=== PATIENT | male | born 1930 | race Caucasian/White ===

== ENCOUNTER 2018-03-18 11:59 | Inpatient (IN) | payer MEDICARE, BC ==
[2018-03-18] MEDS ORDERED: SODIUM CHLORIDE 0.9% 1,000 ML BAG ONE (13:50)
[2018-03-18] MEDS ORDERED: PANTOPRAZOLE 40 MG/10 ML VIAL ONE (13:50)
[2018-03-18] MEDS ORDERED: SODIUM CHLORIDE 0.9% 1,000 ML IV SCH (21:30)
[2018-03-18 21:43] VITALS: BMI 22.3
[2018-03-18 23:27] LABS: Basophils % (A) 0 %; Eosinophils # (A) 0.1 k/uL (0-0.7); Eosinophils % (A) 3 %; HCT 29.1 % (39.0-53.0); HGB 9.3 gm/dL (13.0-17.5); Hypochromasia Slight; Lymphocytes # (A) 0.6 k/uL (1.0-4.8); Lymphocytes % (A) 16 %; MCH 30.3 pg (25.0-35.0); MCHC 31.9 g/dL (31.0-37.0); MCV 94.9 fL (80.0-100.0); Mean Platelet Volume 7.4; Monocytes # (A) 0.3 k/uL (0-1.0); Monocytes % (A) 9 %; Neutrophils # (A) 2.6 k/uL (1.3-7.7); Neutrophils % (A) 69 %; Platelet Count 117 k/uL (150-450); RBC 3.07 m/uL (4.30-5.90); RDW 15.4 % (11.5-15.5); WBC 3.7 k/uL (3.8-10.6)
[2018-03-18 23:33] LABS: INR 3.3 (<1.2); Prothrombin Time 31.4 sec (9.0-12.0)
[2018-03-18 23:51] LABS: Albumin 3.2 g/dL (3.5-5.0); Calcium 8.5 mg/dL (8.4-10.2); Potassium 4.6 mmol/L (3.5-5.1); Total Bilirubin 1.4 mg/dL (0.2-1.3); Total Protein 5.6 g/dL (6.3-8.2)
[2018-03-19 02:10] LABS: INR 3.2 (<1.2); Partial Thromboplastin Time 40.2 sec (22.0-30.0); Prothrombin Time 30.9 sec (9.0-12.0)
[2018-03-19 05:26] LABS: Glucose,Whole Blood 343 mg/dL (75-99)
[2018-03-19] MEDS ORDERED: NITROGLYCERIN SL TABS 0.4 MG TAB SUBLINGUAL PRN (05:35)
[2018-03-19 05:56] LABS: Basophils % (A) 1 %; Eosinophils # (A) 0.1 k/uL (0-0.7); Eosinophils % (A) 2 %; HGB 10.4 gm/dL (13.0-17.5); Lymphocytes # (A) 0.6 k/uL (1.0-4.8); Lymphocytes % (A) 15 %; MCHC 31.7 g/dL (31.0-37.0); MCV 94.7 fL (80.0-100.0); Monocytes # (A) 0.4 k/uL (0-1.0); Monocytes % (A) 9 %; Neutrophils # (A) 2.8 k/uL (1.3-7.7); Neutrophils % (A) 71 %; Platelet Count 155 k/uL (150-450); RBC 3.48 m/uL (4.30-5.90); RDW 15.4 % (11.5-15.5)
[2018-03-19] MEDS: INSULIN ASPART 100 UNIT/ML 1 ML 10 ML VIAL SQ SCH ×4 (06:17→20:46)
[2018-03-19 07:15] LABS: Basophils % (A) 0 %; Eosinophils % (A) 0 %; HGB 9.7 gm/dL (13.0-17.5); Hypochromasia Marked; Lymphocytes # (A) 0.4 k/uL (1.0-4.8); Lymphocytes % (A) 6 %; MCH 29.7 pg (25.0-35.0); MCHC 30.4 g/dL (31.0-37.0); MCV 97.6 fL (80.0-100.0); Mean Platelet Volume 7.2; Monocytes # (A) 0.4 k/uL (0-1.0); Monocytes % (A) 6 %; Neutrophils # (A) 6.1 k/uL (1.3-7.7); Neutrophils % (A) 86 %; Platelet Count 162 k/uL (150-450); RBC 3.28 m/uL (4.30-5.90); RDW 15.4 % (11.5-15.5); WBC 7.1 k/uL (3.8-10.6)
[2018-03-19 07:16] LABS: Calcium 8.9 mg/dL (8.4-10.2); Potassium 5.2 mmol/L (3.5-5.1)
[2018-03-19 07:21] LABS: INR 3.1 (<1.2); Prothrombin Time 30.1 sec (9.0-12.0)
[2018-03-19] MEDS ORDERED: DEXTROSE 5%-0.9% NACL 1,000 ML IV SCH (09:00)
[2018-03-19] MEDS ORDERED: PHYTONADIONE ORAL 5 MG/5 ML ORAL.SYRG PO STA (09:22)
[2018-03-19] MEDS ORDERED: INSULIN DETEMIR 100 UNIT/ML 10 ML VIAL SQ STA (09:22)
[2018-03-19] MEDS: SODIUM BICARB IV SCH ×4 (10:09→20:28)
[2018-03-19] MEDS: NACL IV SCH ×4 (10:09→20:28)
[2018-03-19] MEDS: DEXTROSE IV SCH ×4 (10:09→20:28)
[2018-03-19] MEDS: PANTOPRAZOLE 40 MG/10 ML VIAL IVP SCH (10:14)
[2018-03-19] MEDS: FERROUS SULFATE 325 MG TAB PO SCH (10:14)
[2018-03-19] MEDS: FUROSEMIDE 20 MG TAB PO SCH (10:23)
[2018-03-19] MEDS: DIGOXIN 250 MCG TAB PO SCH (10:23)
[2018-03-19 11:00] LABS: Glucose,Whole Blood 367 mg/dL (75-99)
--- NOTE | 2018-03-19 12:30 | P.CRDCN ---
History of Present Illness Consult date: 03/19/18 Chief complaint: Blood in the stool History of present illness: This is a pleasant 87-year-old gentleman with a past medical history significant for chronic atrial fibrillation on oral anticoagulation with Coumadin as well as valvular heart disease and known aortic stenosis appears to be severe by physical examination was brought by his to the emergency room because she noticed blood in the stool. The patient doesn't follow with a global sales executive at [place] and he supposed to undergo transcutaneous aortic valve replacement. The noticed that the patient has been having blood in the stool and blood in the toilet for the last 24 hours. Because of that she brought into the emergency room. The hemoglobin when he presented was 10.4 and this morning was 9.7. I don't have any baseline hemoglobin on the patient from before. The INR 1 the patient presented to the hospital was for and the patient received vitamin K and the INR today is around 3. We get involved in the care of the patient because of mildly abnormal cardiac enzymes was mildly abnormal troponin. In term off symptoms, the patient denies having any chest pain or chest discomfort, but he does have shortness of breath with exertion appears to be chronic and likely related to the aortic stenosis. No dizziness or lightheadedness. And no syncope. The EKG showed chronic atrial fibrillation. The common and currently is on hold. The patient's stated that the patient did have gastrointestinal bleeding in the past and he underwent multiple upper endoscopy where he was diagnosed with ulcers but the last upper endoscopy revealed what it seems varicose veins in his esophagus. Past Medical History Past Medical History: Atrial Fibrillation, Diabetes Mellitus, Hyperlipidemia Additional Past Medical History / Comment(s): Venous insufficiency History of Any Multi-Drug Resistant Organisms: None Reported Additional Past Surgical History / Comment(s): hemorrhoidectomy, adenoidectomy Past Anesthesia/Blood Transfusion Reactions: No Reported Reaction Smoking Status: Former smoker - Past Family History Father Family Medical History: Cancer Additional Family Medical History / Comment(s): lung cancer Mother Family Medical History: Cancer, CVA/TIA Additional Family Medical History / Comment(s): pancreatic cancer Medications and Allergies Home Medications Medication Instructions Recorded Confirmed Type Aspirin [[facility] Aspirin EC] 81 mg PO DAILY 03/18/18 03/18/18 History Digoxin [Lanoxin] 250 mcg PO DAILY 03/18/18 03/18/18 History Ferrous Sulfate [Feosol] 325 mg PO DAILY 03/18/18 03/18/18 History Insulin NPH Hum/Reg Insulin Hm 15 unit SQ BID 03/18/18 03/18/18 History [NovoLIN 70-30 100 UNIT/ML VIAL] Latanoprost/Pf [Latanoprost 0.005% 1 drop LEFT EYE HS 03/18/18 03/18/18 History Eye Drop] Magnesium Oxide [Mag-Ox] 250 mg PO DAILY 03/18/18 03/18/18 History Pantoprazole Sodium 20 mg PO DAILY 03/18/18 03/18/18 History Simvastatin [Zocor] 20 mg PO HS 03/18/18 03/18/18 History Warfarin [Coumadin] 2.5 mg PO [id number] 03/18/18 03/18/18 History Warfarin [Coumadin] 5 mg PO MO 03/18/18 03/18/18 History Allergies Allergy/AdvReac Type Severity Reaction Status Date / Time No Known Allergies Allergy Verified 03/18/18 22:08 Physical Exam Vitals: Vital Signs Temp Pulse Resp BP Pulse Ox 03/19/18 07:30 97.4 F L 88 18 120/65 98 03/19/18 03:36 95 18 03/19/18 03:34 97.8 F 95 18 133/60 96 03/19/18 00:14 97.5 F L 80 17 125/65 95 03/19/18 00:00 80 17 03/18/18 21:30 97.8 F 82 17 133/61 99 03/18/18 20:00 80 17 130/66 97 Intake and Output 03/18/18 03/19/18 03/19/18 22:59 06:59 14:59 Intake Total 900 Output Total 200 Balance 700 Intake: Intake, IV Titration 900 Amount Sodium Chloride 0.9% 1, 900 000 ml @ 75 mls/hr IV . [id number] [facility] Rx#:[id number] Output: Urine 200 Other: Voiding Method Toilet Toilet # Voids 1 600 # Bowel Movements 2 Weight 72.5 kg 67.3 kg - Constitutional General appearance: no acute distress - Respiratory Respiratory: bilateral: CTA - Cardiovascular Rhythm: irregularly irregular Heart sounds: normal: S1 Abnormal Heart Sounds: systolic murmur Results 03/19/18 06:26 03/19/18 06:26 Cardiac Enzymes 03/18/18 03/18/18 03/19/18 Range/Units 23:15 23:15 06:26 AST 27 (17-59) U/L Troponin I 0.833 H* 0.646 H* (0.000-0.034) ng/mL Coagulation 03/18/18 03/18/18 03/19/18 Range/Units 12:40 23:15 06:26 PT 30.9 H 31.4 H 30.1 H (9.0-12.0) sec APTT 40.2 H (22.0-30.0) sec CBC 03/18/18 03/18/18 03/19/18 Range/Units 12:40 23:15 06:26 WBC 4.0 3.7 L 7.1 (3.8-10.6) k/uL RBC 3.48 L 3.07 L 3.28 L (4.30-5.90) m/uL Hgb 10.4 L 9.3 L 9.7 L (13.0-17.5) gm/dL Hct 33.0 L 29.1 L 32.0 L (39.0-53.0) % Plt Count 155 117 L 162 (150-450) k/uL Comprehensive Metabolic Panel 03/18/18 03/19/18 Range/Units 23:15 06:26 Sodium 138 141 (137-145) mmol/L Potassium 4.6 5.2 H (3.5-5.1) mmol/L Chloride 111 H 111 H (98-107) mmol/L Carbon Dioxide 18 L 11 L (22-30) mmol/L BUN 30 H 33 H (9-20) mg/dL Creatinine 0.92 1.04 (0.66-1.25) mg/dL Glucose 245 H 351 H (74-99) mg/dL Calcium 8.5 8.9 (8.4-10.2) mg/dL AST 27 (17-59) U/L ALT 26 (21-72) U/L Alkaline Phosphatase 100 (38-126) U/L Total Protein 5.6 L (6.3-8.2) g/dL Albumin 3.2 L (3.5-5.0) g/dL Current Medications Generic Name Dose Route Start Last Admin Trade Name Freq PRN Reason Stop Dose Admin Atorvastatin Calcium 10 mg 03/19/18 21:00 Lipitor PO HS [facility] Digoxin 250 mcg 03/19/18 09:30 03/19/18 10:23 Lanoxin PO 250 mcg DAILY [facility] Administration Ferrous Sulfate 325 mg 03/19/18 09:30 03/19/18 10:14 Feosol PO Not Given DAILY [facility] Furosemide 20 mg 03/19/18 09:30 03/19/18 10:23 Lasix PO 20 mg DAILY [facility] Administration Sodium Bicarbonate 100 ml/ 1,100 mls @ 100 mls/hr 03/19/18 10:00 03/19/18 10: 09 Dextrose/Sodium Chloride IV 100 mls/hr .Q11H [facility] Administration Insulin Aspart 0 unit 03/19/18 07:30 03/19/18 12:03 Novolog SQ 7 unit ACHS [facility] Administration Protocol Insulin Aspart 15 unit 03/19/18 17:30 Novolog Mix 70-30 Vial SQ AC-BID [facility] Latanoprost 1 drops 03/19/18 21:00 Xalatan 0.005% LEFT EYE HS [facility] Magnesium Oxide 400 mg 03/20/18 09:00 Mag-Ox PO DAILY [facility] Nitroglycerin 0.4 mg 03/19/18 05:35 03/19/18 05:37 Nitrostat SUBLINGUAL 0.4 mg ONCE PRN Administration Chest Pain Pantoprazole Sodium 40 mg 03/19/18 09:00 03/19/18 10:14 Protonix IVP 40 mg DAILY [facility] Administration Intake and Output 03/18/18 03/19/18 03/19/18 22:59 06:59 14:59 Intake Total 900 Output Total 200 Balance 700 Intake: Intake, IV Titration 900 Amount Sodium Chloride 0.9% 1, 900 000 ml @ 75 mls/hr IV . [id number] [facility] Rx#:[id number] Output: Urine 200 Other: Voiding Method Toilet Toilet # Voids 1 600 # Bowel Movements 2 Weight 72.5 kg 67.3 kg 03/19/18 06:26 03/19/18 06:26 Assessment and Plan Assessment: Assessment #1 GI bleed likely to be lower GI bleed #2 anemia secondary to the above #3 chronic atrial fibrillation was controlled heart rate #4 aortic stenosis, likely to be severe by examination Plan #1 the Coumadin is on hold. #2 the patient was given vitamin K and INR is coming down #3 I think the Coumadin need to be stopped permanently #4 the atrial fibrillation seems to be under good control under the current dose of digoxin #5 I am not concerned about the mildly abnormal cardiac enzymes #6 I will obtain an echocardiogram was Doppler Thank you for allowing us participate in his care and we will continue following up with the patient
[2018-03-19 12:37] LABS: Calcium 9.2 mg/dL (8.4-10.2); Potassium 5.1 mmol/L (3.5-5.1); Total Bilirubin 1.2 mg/dL (0.2-1.3); Total Protein 6.7 g/dL (6.3-8.2)
[2018-03-19 12:45] LABS: Creatine Kinase MB 5.2 ng/mL (0.0-2.4)
[2018-03-19 12:47] LABS: Troponin I 0.991 ng/mL (0.000-0.034)
[2018-03-19 16:02] LABS: Basophils % (A) 0 %; Eosinophils % (A) 0 %; HCT 31.7 % (39.0-53.0); Hypochromasia Slight; Lymphocytes # (A) 0.4 k/uL (1.0-4.8); Lymphocytes % (A) 6 %; MCH 30.5 pg (25.0-35.0); MCHC 31.5 g/dL (31.0-37.0); MCV 96.7 fL (80.0-100.0); Mean Platelet Volume 7.4; Monocytes # (A) 0.8 k/uL (0-1.0); Monocytes % (A) 11 %; Neutrophils # (A) 5.7 k/uL (1.3-7.7); Neutrophils % (A) 80 %; Platelet Count 151 k/uL (150-450); RBC 3.27 m/uL (4.30-5.90); RDW 15.4 % (11.5-15.5); WBC 7.1 k/uL (3.8-10.6)
[2018-03-19 16:30] LABS: Glucose,Whole Blood 242 mg/dL (75-99)
[2018-03-19 16:41] LABS: Potassium 4.1 mmol/L (3.5-5.1)
[2018-03-19] MEDS: INSULN ASP PRT/INSULIN ASPART 100 UNIT/ML 10 ML VIAL SQ SCH (17:26)
--- NOTE | 2018-03-19 20:01 | HP ---
HISTORY AND PHYSICAL DATE OF ADMISSION: 03/18/2018 HISTORY OF PRESENT ILLNESS: This is an 87-year-old white male who is a patient of Dr. Santana and the patient was brought to the emergency room because his noticed blood in the toilet after his bowel movement and he was brought to the emergency room because this was going on for the whole day and the patient was suspected to have lower GI bleeding. He has a history of GI bleeding in the past and he has had upper and lower endoscopies in the past. In the ER, CBC showed a WBC count of 7.1, hemoglobin 10.4, and platelet count 162,000. The patient has a history of chronic atrial fibrillation and he has been on Coumadin. Protime was 30.1 and INR 3.1. Patient was seen by me in the ER and actually he was waiting for being assigned to a room. The patient's blood chemistry showed sodium 141, potassium 5.2, BUN 33, and creatinine 1.04. Blood sugar was 351. The patient was admitted to the hospital. PAST MEDICAL HISTORY: Past medical history reveals that he has multiple chronic illnesses. He is known to have chronic atrial fibrillation and he has been on Coumadin and also he has diabetes mellitus, chronic congestive heart failure and has had GI bleeding in the past. He has chronic iron deficiency anemia and hyperlipidemia. CURRENT MEDICATIONS: Include Lipitor 10 mg daily, 250 mcg daily, ferrous sulfate 325 mg p.o. daily, Lasix 20 mg daily. He is also on NovoLog 70/30 insulin. He is using Xalatan eyedrops daily q.h.s. and Nitrostat p.r.n., Protonix 40 mg daily. ALLERGIES: He has no known drug allergies. SOCIAL HISTORY: He does not smoke and he does not drink alcohol. The patient is currently living in [place] in the winter time he comes to [place]. His primary care physician is Dr. Santana and the patient saw Dr. Santana 2-3 days ago. Apparently, he has severe aortic stenosis and he is planning on going for a transcutaneous valve redo replacement surgery soon. FAMILY HISTORY: Noncontributory. REVIEW OF SYSTEMS: Patient denies any headache. Appetite has been good. Bowels regular, but he has blood in the stool. He denies any chest pain. He has a exertional shortness of breath. He has no abdominal pain. He has no polyuria or dysuria. He has no neurological symptoms. PHYSICAL EXAMINATION: Reveals an 87-year-old white male, he appears weak but he is alert and oriented. There is no jaundice. There is no generalized lymphadenopathy. No petechia or bruises. He is afebrile. Pulse is 78 per minute, irregular. Lungs reveal diminished breath sounds over both bases with a few scattered rales and rhonchi. Abdomen is soft and nontender. There is no mass palpable. Examination of the lower extremities reveal no pitting edema. Neurologic examination does not reveal any localizing signs. IMPRESSION: 1. Acute gastrointestinal bleeding. 2. Acute on chronic blood-loss anemia. 3. History of chronic iron deficiency anemia. 4. Chronic atrial fibrillation. 5. Severe aortic stenosis. 6. Chronic congestive heart failure. 7. Gastroesophageal reflux disease. 8. Diabetes mellitus. PLAN: Patient will be admitted to the hospital. We will monitor his hemoglobin and hematocrit. We will get cardiology and gastroenterology consultation. We will start him on IV fluids for adequate hydration. Prognosis is guarded. The diagnosis, prognosis and therapeutic plans were discussed in detail with the patient and his and his son. MMODL / IJN: [id number] /
[2018-03-19] MEDS: ATORVASTATIN 10 MG TAB PO SCH (20:27)
[2018-03-19] MEDS: LATANOPROST 0.005% OPHTH DROPS 2.5 ML BTL LEFT EYE SCH (20:28)
[2018-03-19 20:42] LABS: Glucose,Whole Blood 128 mg/dL (75-99)
[2018-03-19] MEDS ORDERED: SODIUM CHLORIDE 0.9% 1,000 ML IV ONE (22:30)
[2018-03-19 23:51] LABS: Appearance,Urine Clear (Clear); Bilirubin,Urine Negative (Negative); Blood,Urine Negative (Negative); Color,Urine Yellow; Glucose,Urine (UA) Negative (Negative); Ketones,Urine Negative (Negative); Leukocyte Esterase,Urine Negative (Negative); Nitrite,Urine Negative (Negative); Protein,Urine Negative (Negative); Specific Gravity,Urine 1.011 (1.001-1.035); Urobilinogen,Urine <2.0 mg/dL (<2.0)
--- NOTE | 2018-03-20 00:31 | PN ---
PROGRESS NOTE ATTENDING PHYSICIAN: Dr. Turner Santana. DATE OF ADMISSION: 03/18/2018. DATE OF SERVICE: 03/19/2018. CHIEF COMPLAINT: GI bleeding. HISTORY OF PRESENT ILLNESS: This gentleman presented to the emergency room because he had some blood on his bed. Subsequently that night he started having black-colored stool. The patient has a known history of esophageal varices, which has bled intermittently. He has had a previous sclerosing of it about 2 years ago. He does have a history of chronic atrial fibrillation and is on anticoagulation with Coumadin. The patient's Coumadin level was therapeutic. His hemoglobin has remained stable between at around 9.5 range on average. The patient's hemoglobin prior to hospitalization has been about 11.9. The patient denies any other symptoms. He does have some epigastric discomfort but denies any chest pain. Earlier in the night he did have some chest pain for which he was given nitroglycerin without much change. He does have a history of severe aortic stenosis and chronic atrial fibrillation. No symptoms or signs of CHF. 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 REVIEW OF SYSTEMS: NEURO: Denies any headaches or dizziness. is at the bedside, said he had some confusion earlier. At this time is pretty alert complaining of hunger. He has a history of diabetes mellitus with elevated blood sugars. PSYCH: No anxiety or depression. PSYCH: No chest pain, angina, palpitations. RESPIRATORY: Denies shortness of breath, cough, hemoptysis. GI: No nausea, vomiting, abdominal pain, diarrhea. Presently complains of melanotic stools. : No symptoms of dysuria or hematuria. EXTREMITIES: No pain. CONSTITUTIONAL: No fevers or chills. PHYSICAL EXAMINATION: Pleasant gentleman present in no distress, awake, alert. VITAL SIGNS: Temperature 97.4, pulse 88, respirations 18, blood pressure 120/65, pulse ox 98% on room air. HEENT: Normocephalic. NECK: No JVD. CHEST: Clear to auscultation and percussion. CARDIAC: Normal S1, S2 with no gallops. Irregularly, irregular rhythm. Systolic murmur 2/6 left sternal border. ABDOMEN: Soft. No palpable masses. Bowel sounds normal. No organomegaly. No abdominal bruits. EXTREMITIES: Trace chronic edema. The patient does have evidence of chronic venous stasis with chronic skin changes. NEUROLOGIC: Awake, alert, oriented x3 with well-coordinated movements. LABORATORY ASSESSMENT: The CBC which revealed hemoglobin 9.7, stable INR at 3.1, potassium 5.2, chloride 111, CO2 content 11, anion gap of 19. Lactic acid is 2.2, BUN 33, creatinine 1.04, glucose 351. Troponin stable between 0.09, 0.64. ASSESSMENT: 1. Anemia secondary to acute blood loss. 2. Upper bleeding. 3. Known history of esophageal varices. 4. Chronic atrial fibrillation. 5. Anticoagulated status. 6. Troponin elevation secondary to mismatch. 7. Suggestion of mild acidosis, etiology unclear. PLAN: Hydration, transfusion if needed. Vitamin K now. Repeat INR in the morning. GI to see the patient. The patient is probably going to require an EGD. The patient's prognosis remains guarded. We will have to be off Coumadin and aspirin for now. Condition of the patient discussed with the patient and spouse.. MMGABRIELAL / IJN: [id number] /
--- NOTE | 2018-03-20 02:09 | P.CONS ---
History of Present Illness - Reason for Consult Consult date: 03/19/18 GI bleeding. - History of Present Illness The patient is an 87-year-old male with history of atrial fibrillation and aortic stenosis on Coumadin therapy and aspirin, presented to the emergency room with history of GI bleeding. Apparently, his noticed some blood in his stools and that was followed by dark bowel movement. There is a history of esophageal varices and he had band ligation around 2 years ago. The patient has maintained his hemoglobin around 11 and was found to have a hemoglobin around 9.5 on admission which has since been stable. There is no history of hematemesis and he denied any abdominal pains or dysphagia. His INR was therapeutic but his Coumadin and aspirin has been with her since admission. He had mild elevation in his cardiac enzymes for which she was seen by cardiology. He had lactic acidosis as well. Review of Systems Constitutional: Denies fever, chills, sweats, weight gain, or loss. HEENT: Negative for migraines, blurred vision or loss, earaches, drainage, tinnitus, oral mucosal lesions, dysphagia, or odynophagia. CARDIAC: Negative for chest pain, arrhythmias, or palpitation. RESPIRATORY: Negative for shortness of breath, hemoptysis, cough, or sputum production. GI: See HPI for pertinent findings. : Negative for hematuria, urgency, frequency, polyuria, or dysuria. MUSCULOSKELETAL: Negative for muscle aches, swelling, arthritis, and arthralgias. NEUROLOGIC: Negative for stroke or TIA. ENDOCRINE: Negative for thyroid problems. SKIN: Negative for rash or itching. PSYCHIATRIC: Negative history for depression and anxiety Past Medical History Past Medical History: Atrial Fibrillation, Diabetes Mellitus, Hyperlipidemia Additional Past Medical History / Comment(s): Venous insufficiency History of Any Multi-Drug Resistant Organisms: None Reported Additional Past Surgical History / Comment(s): hemorrhoidectomy, adenoidectomy Past Anesthesia/Blood Transfusion Reactions: No Reported Reaction Smoking Status: Former smoker - Past Family History Father Family Medical History: Cancer Additional Family Medical History / Comment(s): lung cancer Mother Family Medical History: Cancer, CVA/TIA Additional Family Medical History / Comment(s): pancreatic cancer Medications and Allergies Home Medications Medication Instructions Recorded Confirmed Type Aspirin [Hawley Aspirin EC] 81 mg PO DAILY 03/18/18 03/18/18 History Digoxin [Lanoxin] 250 mcg PO DAILY 03/18/18 03/18/18 History Ferrous Sulfate [Feosol] 325 mg PO DAILY 03/18/18 03/18/18 History Insulin NPH Hum/Reg Insulin Hm 15 unit SQ BID 03/18/18 03/18/18 History [NovoLIN 70-30 100 UNIT/ML VIAL] Latanoprost/Pf [Latanoprost 0.005% 1 drop LEFT EYE HS 03/18/18 03/18/18 History Eye Drop] Magnesium Oxide [Mag-Ox] 250 mg PO DAILY 03/18/18 03/18/18 History Pantoprazole Sodium 20 mg PO DAILY 03/18/18 03/18/18 History Simvastatin [Zocor] 20 mg PO HS 03/18/18 03/18/18 History Warfarin [Coumadin] 2.5 mg PO [id number] 03/18/18 03/18/18 History Warfarin [Coumadin] 5 mg PO MO 03/18/18 03/18/18 History Allergies Allergy/AdvReac Type Severity Reaction Status Date / Time No Known Allergies Allergy Verified 03/18/18 22:08 Physical Exam Vitals: Vital Signs Temp Pulse Resp BP Pulse Ox 03/19/18 16:00 98.0 F 86 20 153/71 100 03/19/18 12:00 97.4 F L 83 20 142/60 100 03/19/18 07:30 97.4 F L 88 18 120/65 98 03/19/18 03:36 95 18 03/19/18 03:34 97.8 F 95 18 133/60 96 03/19/18 00:14 97.5 F L 80 17 125/65 95 03/19/18 00:00 80 17 03/18/18 21:30 97.8 F 82 17 133/61 99 03/18/18 20:00 80 17 130/66 97 Intake and Output 03/19/18 03/19/18 03/19/18 06:59 14:59 22:59 Intake Total 900 Output Total 200 450 Balance 700 -450 Intake: Intake, IV Titration 900 Amount Sodium Chloride 0.9% 1, 900 000 ml @ 75 mls/hr IV . [id number] [facility] Rx#:[id number] Output: Urine 200 450 Other: Voiding Method Toilet # Voids 600 3 # Bowel Movements 2 Weight 67.3 kg General appearance: The patient is stated age, pleasant in no apparent distress. HET: Head is normocephalic and atraumatic. Pupils are equal and reactive. Oropharynx is clear without lesions. Neck: Supple without lymphadenopathy. Trachea midline. Heart: S1 S2. Irregular rhythm. Lungs: No crackles or wheezes are heard. Abdomen: Soft, nontender, nondistended with bowel sounds. No peritoneal signs. No palpable organomegaly or masses. Extremities: Normal skin color and turgor. No cyanosis, rash, ulceration, clubbing, or edema. Radial and pedal pulses are 2/4 bilaterally. Neurological: Oriented X3. No focal deficits. Strength and sensation are grossly intact. Results CBC & Chem 7: 03/19/18 15:24 03/19/18 15:24 Labs: Abnormal Lab Results - Last 24 Hours (Table) 03/18/18 03/18/18 03/18/18 Range/Units 12:40 12:40 12:40 WBC (3.8-10.6) k/uL RBC 3.48 L (4.30-5.90) m/uL Hgb 10.4 L (13.0-17.5) gm/dL Hct 33.0 L (39.0-53.0) % MCHC (31.0-37.0) g/dL Plt Count (150-450) k/uL Lymphocytes # 0.6 L (1.0-4.8) k/uL PT 30.9 H (9.0-12.0) sec INR 3.2 H (<1.2) APTT 40.2 H (22.0-30.0) sec Potassium (3.5-5.1) mmol/L Chloride 109 H (98-107) mmol/L Carbon Dioxide (22-30) mmol/L BUN 34 H (9-20) mg/dL Glucose 160 H (74-99) mg/dL POC Glucose (mg/dL) (75-99) mg/dL Plasma Lactic Acid Mil (0.7-2.0) mmol/L Total Bilirubin (0.2-1.3) mg/dL CK-MB (CK-2) (0.0-2.4) ng/mL Troponin I (0.000-0.034) ng/mL Total Protein (6.3-8.2) g/dL Albumin (3.5-5.0) g/dL 03/18/18 03/18/18 03/18/18 Range/Units 12:40 23:15 23:15 WBC 3.7 L (3.8-10.6) k/uL RBC 3.07 L (4.30-5.90) m/uL Hgb 9.3 L (13.0-17.5) gm/dL Hct 29.1 L (39.0-53.0) % MCHC (31.0-37.0) g/dL Plt Count 117 L (150-450) k/uL Lymphocytes # 0.6 L (1.0-4.8) k/uL PT 31.4 H (9.0-12.0) sec INR 3.3 H (<1.2) APTT (22.0-30.0) sec Potassium (3.5-5.1) mmol/L Chloride (98-107) mmol/L Carbon Dioxide (22-30) mmol/L BUN (9-20) mg/dL Glucose (74-99) mg/dL POC Glucose (mg/dL) (75-99) mg/dL Plasma Lactic Acid Mil (0.7-2.0) mmol/L Total Bilirubin (0.2-1.3) mg/dL CK-MB (CK-2) 5.2 H (0.0-2.4) ng/mL Troponin I 0.991 H* (0.000-0.034) ng/mL Total Protein (6.3-8.2) g/dL Albumin (3.5-5.0) g/dL 03/18/18 03/18/18 03/19/18 Range/Units 23:15 23:15 05:24 WBC (3.8-10.6) k/uL RBC (4.30-5.90) m/uL Hgb (13.0-17.5) gm/dL Hct (39.0-53.0) % MCHC (31.0-37.0) g/dL Plt Count (150-450) k/uL Lymphocytes # (1.0-4.8) k/uL PT (9.0-12.0) sec INR (<1.2) APTT (22.0-30.0) sec Potassium (3.5-5.1) mmol/L Chloride 111 H (98-107) mmol/L Carbon Dioxide 18 L (22-30) mmol/L BUN 30 H (9-20) mg/dL Glucose 245 H (74-99) mg/dL POC Glucose (mg/dL) 343 H (75-99) mg/dL Plasma Lactic Acid Mli (0.7-2.0) mmol/L Total Bilirubin 1.4 H (0.2-1.3) mg/dL CK-MB (CK-2) (0.0-2.4) ng/mL Troponin I 0.833 H* (0.000-0.034) ng/mL Total Protein 5.6 L (6.3-8.2) g/dL Albumin 3.2 L (3.5-5.0) g/dL 03/19/18 03/19/18 03/19/18 Range/Units 06:26 06:26 06:26 WBC (3.8-10.6) k/uL RBC 3.28 L (4.30-5.90) m/uL Hgb 9.7 L (13.0-17.5) gm/dL Hct 32.0 L (39.0-53.0) % MCHC 30.4 L (31.0-37.0) g/dL Plt Count (150-450) k/uL Lymphocytes # 0.4 L (1.0-4.8) k/uL PT 30.1 H (9.0-12.0) sec INR 3.1 H (<1.2) APTT (22.0-30.0) sec Potassium 5.2 H (3.5-5.1) mmol/L Chloride 111 H (98-107) mmol/L Carbon Dioxide 11 L (22-30) mmol/L BUN 33 H (9-20) mg/dL Glucose 351 H (74-99) mg/dL POC Glucose (mg/dL) (75-99) mg/dL Plasma Lactic Acid Mil (0.7-2.0) mmol/L Total Bilirubin (0.2-1.3) mg/dL CK-MB (CK-2) (0.0-2.4) ng/mL Troponin I (0.000-0.034) ng/mL Total Protein (6.3-8.2) g/dL Albumin (3.5-5.0) g/dL 03/19/18 03/19/18 03/19/18 Range/Units 06:26 08:47 10:58 WBC (3.8-10.6) k/uL RBC (4.30-5.90) m/uL Hgb (13.0-17.5) gm/dL Hct (39.0-53.0) % MCHC (31.0-37.0) g/dL Plt Count (150-450) k/uL Lymphocytes # (1.0-4.8) k/uL PT (9.0-12.0) sec INR (<1.2) APTT (22.0-30.0) sec Potassium (3.5-5.1) mmol/L Chloride (98-107) mmol/L Carbon Dioxide (22-30) mmol/L BUN (9-20) mg/dL Glucose (74-99) mg/dL POC Glucose (mg/dL) 367 H (75-99) mg/dL Plasma Lactic Acid Mil 2.2 H* (0.7-2.0) mmol/L Total Bilirubin (0.2-1.3) mg/dL CK-MB (CK-2) (0.0-2.4) ng/mL Troponin I 0.646 H* (0.000-0.034) ng/mL Total Protein (6.3-8.2) g/dL Albumin (3.5-5.0) g/dL 03/19/18 03/19/18 03/19/18 Range/Units 12:54 15:24 15:24 WBC (3.8-10.6) k/uL RBC 3.27 L (4.30-5.90) m/uL Hgb 10.0 L (13.0-17.5) gm/dL Hct 31.7 L (39.0-53.0) % MCHC (31.0-37.0) g/dL Plt Count (150-450) k/uL Lymphocytes # 0.4 L (1.0-4.8) k/uL PT (9.0-12.0) sec INR (<1.2) APTT (22.0-30.0) sec Potassium (3.5-5.1) mmol/L Chloride 109 H (98-107) mmol/L Carbon Dioxide 20 L (22-30) mmol/L BUN 32 H (9-20) mg/dL Glucose 271 H (74-99) mg/dL POC Glucose (mg/dL) (75-99) mg/dL Plasma Lactic Acid Mil 3.2 H* (0.7-2.0) mmol/L Total Bilirubin (0.2-1.3) mg/dL CK-MB (CK-2) (0.0-2.4) ng/mL Troponin I (0.000-0.034) ng/mL Total Protein (6.3-8.2) g/dL Albumin (3.5-5.0) g/dL 03/19/18 Range/Units 16:29 WBC (3.8-10.6) k/uL RBC (4.30-5.90) m/uL Hgb (13.0-17.5) gm/dL Hct (39.0-53.0) % MCHC (31.0-37.0) g/dL Plt Count (150-450) k/uL Lymphocytes # (1.0-4.8) k/uL PT (9.0-12.0) sec INR (<1.2) APTT (22.0-30.0) sec Potassium (3.5-5.1) mmol/L Chloride (98-107) mmol/L Carbon Dioxide (22-30) mmol/L BUN (9-20) mg/dL Glucose (74-99) mg/dL POC Glucose (mg/dL) 242 H (75-99) mg/dL Plasma Lactic Acid Mil (0.7-2.0) mmol/L Total Bilirubin (0.2-1.3) mg/dL CK-MB (CK-2) (0.0-2.4) ng/mL Troponin I (0.000-0.034) ng/mL Total Protein (6.3-8.2) g/dL Albumin (3.5-5.0) g/dL Assessment and Plan Assessment: GI bleeding and anemia likely on the basis of upper GI source. I doubt that this is esophageal bleed, however with his history of esophageal varices and especially if he needs to be on anticoagulation, further definition of the problem is indicated. Plan: I agree with your current management. We will consider an upper endoscopy in the next day or 2 based on his INR and his overall course. I will discuss with you and follow with you with interest.
[2018-03-20 05:57] LABS: Glucose,Whole Blood 94 mg/dL (75-99)
[2018-03-20 06:06] LABS: HCT 27.7 % (39.0-53.0); MCH 30.3 pg (25.0-35.0); MCHC 32.3 g/dL (31.0-37.0); MCV 93.8 fL (80.0-100.0); Mean Platelet Volume 7.6; Platelet Count 114 k/uL (150-450); RBC 2.96 m/uL (4.30-5.90); RDW 15.5 % (11.5-15.5); WBC 4.5 k/uL (3.8-10.6)
[2018-03-20] MEDS: INSULIN ASPART 100 UNIT/ML 1 ML 10 ML VIAL SQ SCH ×4 (06:07→21:19)
[2018-03-20 06:23] LABS: Calcium 8.2 mg/dL (8.4-10.2); Potassium 3.3 mmol/L (3.5-5.1)
[2018-03-20 06:32] LABS: INR 2.4 (<1.2); Prothrombin Time 23.5 sec (9.0-12.0)
[2018-03-20] MEDS: INSULN ASP PRT/INSULIN ASPART 100 UNIT/ML 10 ML VIAL SQ SCH ×2 (07:34→18:16)
[2018-03-20] MEDS ORDERED: PHYTONADIONE ORAL 5 MG/5 ML ORAL.SYRG PO STA (08:03)
[2018-03-20 08:37] LABS: Glucose,Whole Blood 217 mg/dL (75-99)
[2018-03-20] MEDS: NACL IV SCH ×2 (08:47)
[2018-03-20] MEDS: DEXTROSE IV SCH ×2 (08:47)
[2018-03-20] MEDS: SODIUM BICARB IV SCH ×2 (08:47)
[2018-03-20] MEDS: FUROSEMIDE 20 MG TAB PO SCH ×2 (09:01→18:11)
[2018-03-20] MEDS: PANTOPRAZOLE 40 MG/10 ML VIAL IVP SCH (09:01)
[2018-03-20] MEDS: FERROUS SULFATE 325 MG TAB PO SCH (09:01)
[2018-03-20] MEDS: 0.9% NACL WITH KCL 40 MEQ/L 1,000 ML IV SCH (09:01)
[2018-03-20] MEDS: DIGOXIN 250 MCG TAB PO SCH (09:01)
[2018-03-20] MEDS: MAGNESIUM OXIDE 400 MG TAB PO SCH (09:01)
[2018-03-20] MEDS: POTASSIUM CHLORIDE ER 20 MEQ TAB.ER PO SCH ×2 (11:33→11:34)
[2018-03-20 11:42] LABS: Glucose,Whole Blood 159 mg/dL (75-99)
--- NOTE | 2018-03-20 14:14 | P.PN ---
Subjective Progress Note Date: 03/20/18 This is a pleasant 87-year-old gentleman with past medical history significant for chronic A. fib, valvular heart disease, known aortic stenosis who was initially brought to the hospital because of heme noticed in the stool. Patient was seen and examined this morning, hemoglobin 9.0, platelet count 114 , INR 2.4. Sodium 142, potassium 3.3, BUN 25 and creatinine 0.6. Patient was seen and examined today, I pressure 136/70 with a heart rate in the 80s, 100% on room air. Objective - Vital Signs Vital signs: Vital Signs Temp 98.4 F 03/20/18 11:20 Pulse 87 03/20/18 11:20 Resp 18 03/20/18 11:20 BP 136/71 03/20/18 11:20 Pulse Ox 100 03/20/18 11:20 Intake & Output 03/19/18 03/20/18 03/20/18 18:59 06:59 18:59 Intake Total 50 2450 775 Output Total 450 1050 Balance -400 1400 775 Weight 67.2 kg Intake: Intake, IV Titration 2150 Amount Dextrose 5%-0.9% NaCl 1, 1100 000 ml @ 100 mls/hr IV . Q10H COUNTS INCLUDE 234 BEDS AT THE [facility] Rx#:[id number] Sodium Chloride 0.9% 1, 1000 000 ml @ 999 mls/hr IV . Q1H1M [facility] Rx#:[id number] cefTRIAXone 1,000 mg In 50 Sodium Chloride 0.9% 50 ml @ 100 mls/hr IVPB Q24H COUNTS INCLUDE 234 BEDS AT THE [facility] Rx#:[id number] Oral 50 300 775 Output: Urine 450 1050 Other: Voiding Method Urinal # Voids 3 1 - Exam PHYSICAL EXAMINATION: GENERAL: 87-year-old gentleman in no acute distress at the time of my examination HEENT: Head is atraumatic, normocephalic. Pupils equal, round. Sclera anicteric. Conjunctiva are clear. Mucous membranes of the mouth are moist. Neck is supple. There is no elevated jugular venous pressure.] bruit is heard. HEART EXAMINATION: S1 and S2 irregularly irregular a systolic murmur is heard CHEST EXAMINATION: Lungs are clear to auscultation and precussion. No chest wall tenderness is noted on palpation or with deep breathing. ABDOMEN: Soft, nontender. Bowel sounds are heard. No organomegaly noted. EXTREMITIES:[ 2+ peripheral pulses with trace evidence of peripheral edema and venous stasis NEUROLOGIC patient is awake, alert and oriented 3 . . - Labs CBC & Chem 7: 03/20/18 05:24 03/20/18 05:24 Labs: Abnormal Lab Results - Last 24 Hours (Table) 03/18/18 03/19/18 03/19/18 Range/Units 19:30 15:24 15:24 RBC 3.27 L (4.30-5.90) m/uL Hgb 10.0 L (13.0-17.5) gm/dL Hct 31.7 L (39.0-53.0) % Plt Count (150-450) k/uL Lymphocytes # 0.4 L (1.0-4.8) k/uL PT (9.0-12.0) sec INR (<1.2) Potassium (3.5-5.1) mmol/L Chloride 109 H (98-107) mmol/L Carbon Dioxide 20 L (22-30) mmol/L BUN 32 H (9-20) mg/dL Glucose 271 H (74-99) mg/dL POC Glucose (mg/dL) 217 H (75-99) mg/dL Plasma Lactic Acid Mil (0.7-2.0) mmol/L Calcium (8.4-10.2) mg/dL 03/19/18 03/19/18 03/19/18 Range/Units 16:29 17:10 20:41 RBC (4.30-5.90) m/uL Hgb (13.0-17.5) gm/dL Hct (39.0-53.0) % Plt Count (150-450) k/uL Lymphocytes # (1.0-4.8) k/uL PT (9.0-12.0) sec INR (<1.2) Potassium (3.5-5.1) mmol/L Chloride (98-107) mmol/L Carbon Dioxide (22-30) mmol/L BUN (9-20) mg/dL Glucose (74-99) mg/dL POC Glucose (mg/dL) 242 H 128 H (75-99) mg/dL Plasma Lactic Acid Mil 2.5 H* (0.7-2.0) mmol/L Calcium (8.4-10.2) mg/dL 03/19/18 03/20/18 03/20/18 Range/Units 20:54 05:24 05:24 RBC 2.96 L (4.30-5.90) m/uL Hgb 9.0 L (13.0-17.5) gm/dL Hct 27.7 L (39.0-53.0) % Plt Count 114 L (150-450) k/uL Lymphocytes # (1.0-4.8) k/uL PT 23.5 H (9.0-12.0) sec INR 2.4 H (<1.2) Potassium (3.5-5.1) mmol/L Chloride (98-107) mmol/L Carbon Dioxide (22-30) mmol/L BUN (9-20) mg/dL Glucose (74-99) mg/dL POC Glucose (mg/dL) (75-99) mg/dL Plasma Lactic Acid Mil 3.1 H* (0.7-2.0) mmol/L Calcium (8.4-10.2) mg/dL 03/20/18 03/20/18 Range/Units 05:24 11:19 RBC (4.30-5.90) m/uL Hgb (13.0-17.5) gm/dL Hct (39.0-53.0) % Plt Count (150-450) k/uL Lymphocytes # (1.0-4.8) k/uL PT (9.0-12.0) sec INR (<1.2) Potassium 3.3 L (3.5-5.1) mmol/L Chloride 112 H (98-107) mmol/L Carbon Dioxide (22-30) mmol/L BUN 25 H (9-20) mg/dL Glucose (74-99) mg/dL POC Glucose (mg/dL) 159 H (75-99) mg/dL Plasma Lactic Acid Mil (0.7-2.0) mmol/L Calcium 8.2 L (8.4-10.2) mg/dL Assessment and Plan Plan: Assessment and plan #1 anemia secondary to acute blood loss #2 known history of esophageal varices #3 chronic persistent atrial fibrillation #4 abnormality in troponin, likely secondary to supply and demand mismatch Plan From cardiology's perspective, Coumadin could be stopped permanently. A. fib remains under adequate control. We will review echocardiogram with Doppler study. DNP note has been reviewed, I agree with a documented findings and plan of care. Patient was seen and examined.
[2018-03-20 17:03] LABS: Glucose,Whole Blood 162 mg/dL (75-99)
[2018-03-20] MEDS: ATORVASTATIN 10 MG TAB PO SCH (19:59)
[2018-03-20] MEDS: LATANOPROST 0.005% OPHTH DROPS 2.5 ML BTL LEFT EYE SCH (20:00)
[2018-03-20 20:44] LABS: Glucose,Whole Blood 305 mg/dL (75-99)
--- NOTE | 2018-03-20 23:44 | PN ---
PROGRESS NOTE CHIEF COMPLAINT: Re-evaluation. HISTORY OF PRESENT ILLNESS: This 87-year-old gentleman was admitted to the hospital with GI bleeding. He had melanotic stool. The patient's initial stool was quite bloody. The patient has subsequently been stable in the hospital with stable vital signs and stable hemoglobin. He has had a previous esophageal bleed. The patient has had no evidence of any cirrhosis of the liver. He does have a history of diabetes mellitus, long-standing history of previous internal carotid artery occlusion with no residual focal deficits. He has significant peripheral neuropathy. He has had history of chronic atrial fibrillation and is on anticoagulation with Coumadin. REVIEW OF SYSTEMS: NEURO: Denies any headaches, dizziness. PSYCH: No anxiety. CARDIAC: No chest pain, angina, palpitations. RESPIRATORY: Denies shortness of breath, cough, hemoptysis. GI: No nausea, vomiting, abdominal pain, diarrhea. No bowel movement. : No symptoms of dysuria or hematuria. Does have frequency, urgency. EXTREMITIES: Denies pain, edema. CONSTITUTIONAL: No fever, chills. PHYSICAL EXAMINATION: Pleasant gentleman, at present in no distress. Vital signs reveal temperature 98.4, pulse 74, respirations 18, blood pressure 131/81, pulse ox 100% on room air. HEENT: Normocephalic. NECK: No JVD. CHEST EXAMINATION: Clear to auscultation with mild decreased air flow at the bases. CARDIAC: Distant heart sounds S1, S2 with no gallop. Irregularly irregular rhythm. Systolic murmur 2/6, right second intercostal space and apex. ABDOMEN: Soft. Bowel sounds present. Extremities reveal chronic edema in lower legs. Neurologically awake, alert, oriented with well-coordinated movements. Some lethargy. LABORATORY ASSESSMENT: CBC which revealed hemoglobin 9.0, platelets 114. INR 2.4, potassium 3.3, BUN 25, creatinine 0.86, CO2 content 26. ASSESSMENT: 1. Upper gastrointestinal bleeding. 2. Anticoagulated status with Coumadin. 3. Chronic atrial fibrillation. 4. Diabetes mellitus with peripheral neuropathy. 5. Aortic stenosis. PLAN: The patient is stable. Continue present medical regimen. Patient will be given vitamin K again today. Advance diet to full liquids. The patient is awaiting EGD. Will give the patient potassium through the IV due to history of GI bleeding, and not give oral. Patient's prognosis remains guarded. Condition discussed with the patient and spouse. The patient was re-evaluated in the evening and remained stable. MMODL / IJN: [id number] /
[2018-03-21] MEDS: 0.9% NACL WITH KCL 40 MEQ/L 1,000 ML IV SCH (03:34)
[2018-03-21 05:51] LABS: Glucose,Whole Blood 206 mg/dL (75-99)
[2018-03-21] MEDS: INSULIN ASPART 100 UNIT/ML 1 ML 10 ML VIAL SQ SCH ×4 (06:23→21:25)
[2018-03-21 06:24] LABS: HCT 27.9 % (39.0-53.0); Hypochromasia Slight; MCH 30.4 pg (25.0-35.0); MCHC 32.1 g/dL (31.0-37.0); MCV 94.7 fL (80.0-100.0); Mean Platelet Volume 7.6; Platelet Count 103 k/uL (150-450); RBC 2.95 m/uL (4.30-5.90); RDW 15.5 % (11.5-15.5); WBC 3.5 k/uL (3.8-10.6)
[2018-03-21 06:33] LABS: INR 1.4 (<1.2); Prothrombin Time 13.9 sec (9.0-12.0)
--- NOTE | 2018-03-21 07:29 | P.PN ---
Subjective Progress Note Date: 03/20/18 Principal diagnosis: Anemia, melena Patient is seen with his sitting within bedside. They report one dark bowel movement this morning. No red blood seen with bowel movement. Patient is tolerating his diet. Objective - Vital Signs Vital signs: Vital Signs Temp 97.7 F 03/20/18 23:13 Pulse 77 03/20/18 23:14 Resp 18 03/20/18 23:14 BP 116/62 03/20/18 23:13 Pulse Ox 96 03/20/18 23:13 Intake & Output 03/20/18 03/20/18 03/21/18 06:59 18:59 06:59 Intake Total 2450 1435 Output Total 1050 Balance 1400 1435 Weight 67.2 kg Intake: Intake, IV Titration 2150 Amount Dextrose 5%-0.9% NaCl 1, 1100 000 ml @ 100 mls/hr IV . Q10H [facility] Rx#:[id number] Sodium Chloride 0.9% 1, 1000 000 ml @ 999 mls/hr IV . Q1H1M [facility] Rx#:[id number] cefTRIAXone 1,000 mg In 50 Sodium Chloride 0.9% 50 ml @ 100 mls/hr IVPB Q24H [facility] Rx#:[id number] Oral 300 1435 Output: Urine 1050 Other: Voiding Method Urinal Diaper Incontinent # Voids 1 1 - Exam On physical examination, patient appears comfortable in no apparent distress. HEAD: Normocephalic, atraumatic. EYES: No scleral icterus. No conjunctival injection. MOUTH: No lesions, tongue midline. NECK: Trachea midline, no gross abnormalities. CHEST: Clear to auscultation with no wheezing or rhonchi appreciated. ABDOMEN: Soft, obese. Bowel sounds are positive. No organomegaly. No guarding or rigidity. EXTREMITIES: No pedal edema. SKIN: No rashes, no jaundice. NEUROLOGIC: No focal deficits. - Labs CBC & Chem 7: 03/21/18 05:40 03/20/18 05:24 Labs: Abnormal Lab Results - Last 24 Hours (Table) 03/18/18 03/20/18 03/20/18 Range/Units 19:30 05:24 05:24 RBC 2.96 L (4.30-5.90) m/uL Hgb 9.0 L (13.0-17.5) gm/dL Hct 27.7 L (39.0-53.0) % Plt Count 114 L (150-450) k/uL PT 23.5 H (9.0-12.0) sec INR 2.4 H (<1.2) Potassium (3.5-5.1) mmol/L Chloride (98-107) mmol/L BUN (9-20) mg/dL POC Glucose (mg/dL) 217 H (75-99) mg/dL Calcium (8.4-10.2) mg/dL 03/20/18 03/20/18 03/20/18 Range/Units 05:24 11:19 16:39 RBC (4.30-5.90) m/uL Hgb (13.0-17.5) gm/dL Hct (39.0-53.0) % Plt Count (150-450) k/uL PT (9.0-12.0) sec INR (<1.2) Potassium 3.3 L (3.5-5.1) mmol/L Chloride 112 H (98-107) mmol/L BUN 25 H (9-20) mg/dL POC Glucose (mg/dL) 159 H 162 H (75-99) mg/dL Calcium 8.2 L (8.4-10.2) mg/dL 03/20/18 Range/Units 20:43 RBC (4.30-5.90) m/uL Hgb (13.0-17.5) gm/dL Hct (39.0-53.0) % Plt Count (150-450) k/uL PT (9.0-12.0) sec INR (<1.2) Potassium (3.5-5.1) mmol/L Chloride (98-107) mmol/L BUN (9-20) mg/dL POC Glucose (mg/dL) 305 H (75-99) mg/dL Calcium (8.4-10.2) mg/dL Microbiology - Last 24 Hours (Table) 03/19/18 23:10 Urine Culture - Preliminary Urine,Voided Assessment and Plan (1) GI bleed Narrative/Plan: Patient presenting with complaints of melena and found to be anemic. Suspect possible upper GI bleed given melanotic stool. Current Visit: Yes Status: Acute Code(s): K92.2 - GASTROINTESTINAL HEMORRHAGE, UNSPECIFIED SNOMED Code(s): 24735869 Plan: Supportive care Monitor hemoglobin and transfuse as needed Continue diet, nothing by mouth after midnight Plan for upper endoscopy in the morning for further investigation Thank you for allowing us to participate in the care of the patient, we will continue to follow
[2018-03-21] MEDS: PANTOPRAZOLE 40 MG/10 ML VIAL IVP SCH (08:22)
[2018-03-21 09:44] LABS: INR 1.3 (<1.2)
[2018-03-21] MEDS ORDERED: LACTATED RINGERS 1,000 ML IV SCH (10:05)
[2018-03-21 11:12] LABS: Glucose,Whole Blood 141 mg/dL (75-99)
[2018-03-21] MEDS ORDERED: PROPOFOL 10 MG/ML 20 ML VIAL IV ONE (13:10)
[2018-03-21] MEDS ORDERED: ePHEDrine SULFATE/0.9% NACL/PF 50 MG/5 ML SYRINGE IV ONE (13:10)
[2018-03-21] MEDS ORDERED: LIDOCAINE 1% INJ 10MG/ML (20 ML MDV) ONE (13:10)
[2018-03-21] MEDS ORDERED: IV FLUID CONTINUATION 1,000 ML IV ONE (13:12)
--- NOTE | 2018-03-21 13:38 | P.PCN ---
Date of Procedure: 03/21/18 Description of Procedure: BRIEF HISTORY: The patient is an 87-year-old male with history of atrial fibrillation and aortic stenosis on Coumadin therapy and aspirin, presented to the emergency room with history of GI bleeding. Apparently, his noticed some blood in his stools and that was followed by dark bowel movement. There is a history of esophageal varices and he had band ligation around 2 years ago. The patient has maintained his hemoglobin around 11 and was found to have a hemoglobin around 9.5 on admission which has since been stable. There is no history of hematemesis and he denied any abdominal pains or dysphagia. His INR was therapeutic but his Coumadin and aspirin has been with her since admission. He had mild elevation in his cardiac enzymes for which she was seen by cardiology. He had lactic acidosis as well.. PROCEDURE PERFORMED: Esophagogastroduodenoscopy with biopsy. PREOPERATIVE DIAGNOSIS: Melena, anemia of acute blood loss. ESTIMATED BLOOD LOSS: Minimal. IV sedation per anesthesia. PROCEDURE: After informed consent was obtained, the patient was brought into the endoscopy unit. IV sedation was administered by Anesthesia under continuous monitoring. Initially the Olympus GIF-190 video endoscope was inserted into the mouth. Esophagus intubated without any difficulty. It was gradually advanced into the stomach and duodenum and carefully examined. The bulb and the second part of the duodenum appeared normal. The scope at this time was withdrawn to the stomach, adequately insufflated with air, and upon careful examination, mucosa of the antrum, body, cardia and the fundus appeared grossly normal. There were small nonbleeding superficial erosions in the cardia of the stomach without any high risk stigmata for bleeding, with biopsies taken. The scope was then withdrawn into the esophagus. The GE junction was located at 41 cm from the incisors. The esophagus appeared normal. There were no erosions or ulcerations or varices seen and the patient tolerated the procedure well. IMPRESSION: 1. No old blood or active GI bleeding seen on evaluation of the upper GI tract. 2. Superficial erosions of the cardia likely the source of the patient's GI bleeding, biopsies taken. RECOMMENDATIONS: The findings of this examination were discussed with the patient and his and son. Biopsies taken, await pathology. Okay for diet. Continue Protonix therapy. Monitor for signs and symptoms of GI bleeding.
--- NOTE | 2018-03-21 15:21 | P.PN ---
Subjective Progress Note Date: 03/21/18 This is a pleasant 87-year-old gentleman with past medical history significant for chronic A. fib, valvular heart disease, known aortic stenosis who was initially brought to the hospital because of heme noticed in the stool. Patient was seen and examined this morning, hemoglobin 9.0, platelet count 114 , INR 2.4. Sodium 142, potassium 3.3, BUN 25 and creatinine 0.6. Patient was seen and examined today, Blood pressure 136/70 with a heart rate in the 80s, 100 % on room air. Patient scheduled to undergo an EGD today. White blood cell count 3.5, hemoglobin 9.0, platelet count 103. He sitting up in the chair at the time of my examination, feels well, no complaints. Objective - Vital Signs Vital signs: Vital Signs Temp 97.5 F L 03/21/18 12:16 Pulse 74 03/21/18 13:53 Resp 18 03/21/18 13:53 BP 141/67 03/21/18 13:53 Pulse Ox 99 03/21/18 13:53 Intake & Output 03/20/18 03/21/18 03/21/18 18:59 06:59 18:59 Intake Total 1435 800 200 Output Total 0 Balance 1435 800 200 Weight 76.5 kg Intake: IV 200 Intake, IV Titration 800 Amount Dextrose 5%-0.9% NaCl 1, 800 000 ml @ 100 mls/hr IV . Q11H MULU with Sodium Bicarb (1 Meq/ml) 100 ml Rx#:[id number] Oral 1435 0 Output: Stool 0 Other: Voiding Method Diaper Diaper Incontinent Incontinent # Voids 1 2 1 # Bowel Movements 1 - Exam PHYSICAL EXAMINATION: GENERAL: 87-year-old gentleman in no acute distress at the time of my examination HEENT: Head is atraumatic, normocephalic. Pupils equal, round. Sclera anicteric. Conjunctiva are clear. Mucous membranes of the mouth are moist. Neck is supple. There is no elevated jugular venous pressure.] bruit is heard. HEART EXAMINATION: S1 and S2 irregularly irregular a systolic murmur is heard CHEST EXAMINATION: Lungs are clear to auscultation and precussion. No chest wall tenderness is noted on palpation or with deep breathing. ABDOMEN: Soft, nontender. Bowel sounds are heard. No organomegaly noted. EXTREMITIES:[ 2+ peripheral pulses with trace evidence of peripheral edema and venous stasis NEUROLOGIC patient is awake, alert and oriented 3 . . - Labs CBC & Chem 7: 03/21/18 05:40 03/21/18 08:55 Labs: Abnormal Lab Results - Last 24 Hours (Table) 03/20/18 03/20/18 03/21/18 Range/Units 16:39 20:43 05:40 WBC 3.5 L (3.8-10.6) k/uL RBC 2.95 L (4.30-5.90) m/uL Hgb 9.0 L (13.0-17.5) gm/dL Hct 27.9 L (39.0-53.0) % Plt Count 103 L (150-450) k/uL PT (9.0-12.0) sec INR (<1.2) POC Glucose (mg/dL) 162 H 305 H (75-99) mg/dL 03/21/18 03/21/18 03/21/18 Range/Units 05:40 05:50 08:55 WBC (3.8-10.6) k/uL RBC (4.30-5.90) m/uL Hgb (13.0-17.5) gm/dL Hct (39.0-53.0) % Plt Count (150-450) k/uL PT 13.9 H 13.0 H (9.0-12.0) sec INR 1.4 H 1.3 H (<1.2) POC Glucose (mg/dL) 206 H (75-99) mg/dL 03/21/18 Range/Units 11:10 WBC (3.8-10.6) k/uL RBC (4.30-5.90) m/uL Hgb (13.0-17.5) gm/dL Hct (39.0-53.0) % Plt Count (150-450) k/uL PT (9.0-12.0) sec INR (<1.2) POC Glucose (mg/dL) 141 H (75-99) mg/dL Microbiology - Last 24 Hours (Table) 03/19/18 23:10 Urine Culture - Final Urine,Voided Assessment and Plan Plan: Assessment and plan #1 anemia secondary to acute blood loss #2 known history of esophageal varices #3 chronic persistent atrial fibrillation #4 abnormality in troponin, likely secondary to supply and demand mismatch Plan Cardiology's perspective, we will await results of EGD, continue to follow. DNP note has been reviewed, I agree with a documented findings and plan of care. Patient was seen and examined.
[2018-03-21 16:37] LABS: Glucose,Whole Blood 192 mg/dL (75-99)
[2018-03-21] MEDS: INSULN ASP PRT/INSULIN ASPART 100 UNIT/ML 10 ML VIAL SQ SCH ×2 (16:56→17:01)
[2018-03-21] MEDS: MAGNESIUM OXIDE 400 MG TAB PO SCH (16:57)
[2018-03-21] MEDS: DIGOXIN 250 MCG TAB PO SCH (16:57)
[2018-03-21] MEDS: FERROUS SULFATE 325 MG TAB PO SCH (16:57)
[2018-03-21] MEDS: LATANOPROST 0.005% OPHTH DROPS 2.5 ML BTL LEFT EYE SCH (20:22)
[2018-03-21] MEDS: ATORVASTATIN 10 MG TAB PO SCH (20:22)
[2018-03-21 21:12] LABS: Glucose,Whole Blood 185 mg/dL (75-99)
--- NOTE | 2018-03-21 23:15 | PN ---
PROGRESS NOTE CHIEF COMPLAINT: Re-evaluation. HISTORY OF PRESENT ILLNESS: This is an 87-year-old gentleman who was admitted to the hospital with upper GI bleeding. He did undergo an EGD today. No clear obvious ulcerations. Some mild superficial gastritis. No esophageal varices seen. REVIEW OF SYSTEMS: NEURO: Denies any headaches, dizziness. PSYCH: No anxiety. CARDIAC: No chest pain, angina, palpitations. RESPIRATORY: No shortness of breath, cough, hemoptysis. GI: No nausea, vomiting, abdominal pain, diarrhea. Did have a bowel movement which was not melanotic. : No symptoms of dysuria or hematuria. Does have urgency, frequency. EXTREMITIES: No pain. Chronic edema. ENDOCRINE: Blood sugar is adequately controlled. CONSTITUTIONAL: No fever, chills. PHYSICAL EXAMINATION: Pleasant gentleman, at present in no distress. Vital signs reveal temperature 98, pulse 63, respirations 17, blood pressure 127/60, pulse ox of 96% on room air. HEENT: Normocephalic. NECK: No JVD. CHEST: Clear to auscultation and percussion. CARDIAC: Normal S1 and S2 with no gallops. Irregularly irregular rhythm. ABDOMEN: Soft. No palpable masses. Bowel sounds normal. No organomegaly. No abdominal bruits. Extremities reveal chronic edema. Neurologically awake, alert, oriented x3 with well-coordinated movements. LABORATORY ASSESSMENT: CBC reveals a hemoglobin of 9.0. Blood sugar is adequately controlled. INR was 1.3. Potassium 4.1. ASSESSMENT: 1. Upper gastrointestinal bleeding, resolved. 2. Anemia secondary to acute blood loss. 3. Chronic atrial fibrillation. 4. Aortic stenosis. 5. Diabetes mellitus. PLAN: Continue present medical regimen. Patient's condition discussed with the patient. Prognosis guarded. Potential discharge home tomorrow. MMODL / IJN: [id number] /
[2018-03-21 23:19] VITALS: RESP 16
[2018-03-22 03:34] VITALS: PULSE 68
[2018-03-22] MEDS ORDERED: SODIUM FERRIC GLUCONAT-SUCROSE 125 MG in SODIUM CHLORIDE 0.9% 100 ML IVPB ONE (06:06)
[2018-03-22 06:16] LABS: Glucose,Whole Blood 192 mg/dL (75-99)
[2018-03-22 06:52] LABS: HCT 28.6 % (39.0-53.0); HGB 9.1 gm/dL (13.0-17.5); Hypochromasia Slight; MCH 30.1 pg (25.0-35.0); MCHC 31.7 g/dL (31.0-37.0); MCV 94.8 fL (80.0-100.0); Mean Platelet Volume 7.7; Platelet Count 118 k/uL (150-450); RBC 3.01 m/uL (4.30-5.90); RDW 15.3 % (11.5-15.5)
[2018-03-22] MEDS: INSULIN ASPART 100 UNIT/ML 1 ML 10 ML VIAL SQ SCH (06:58)
[2018-03-22] MEDS ORDERED: PANTOPRAZOLE 40 MG TABLET PO SCH (07:30)
[2018-03-22] MEDS: INSULN ASP PRT/INSULIN ASPART 100 UNIT/ML 10 ML VIAL SQ SCH (07:36)
[2018-03-22] MEDS: MAGNESIUM OXIDE 400 MG TAB PO SCH (08:12)
[2018-03-22] MEDS: DIGOXIN 250 MCG TAB PO SCH (08:12)
[2018-03-22 08:40] VITALS: BP 151/69; TEMP 98.3
--- NOTE | 2018-03-22 08:54 | P.PN ---
Subjective Progress Note Date: 03/22/18 Principal diagnosis: anemia melena Status post EGD yesterday superficial erosions cardia. No active bleeding. Denies abdominal pain. Hemoglobin 9.1. Objective - Vital Signs Vital signs: Vital Signs Temp 98.3 F 03/22/18 08:00 Pulse 68 03/22/18 03:34 Resp 16 03/22/18 08:00 BP 151/69 03/22/18 08:00 Pulse Ox 96 03/22/18 08:00 Intake & Output 03/21/18 03/22/18 03/22/18 18:59 06:59 18:59 Intake Total 422 320 Output Total 0 350 Balance 422 -30 Intake: IV 200 Intake, IV Titration 320 Amount Lactated Ringers 1,000 ml 320 @ 20 mls/hr IV .Q24H MULU Rx#:[id number] Oral 222 Output: Urine 350 Stool 0 Other: Voiding Method Diaper Diaper Incontinent Incontinent # Voids 1 1 # Bowel Movements 1 - Exam General appearance: The patient is alert, oriented, in no acute distress. HET: Head is normocephalic and atraumatic. Pupils are equal and reactive. Oropharynx is clear without lesions. Neck: Supple without lymphadenopathy. Trachea midline. Heart: S1 S2. Regular rate and rhythm. Lungs: No crackles or wheezes are heard. Abdomen: Soft, nontender, nondistended with bowel sounds. No peritoneal signs. No palpable organomegaly or masses. Extremities: Normal skin color and turgor. No cyanosis, rash, ulceration, clubbing, or edema. Radial and pedal pulses are 2/4 bilaterally. Neurological: No focal deficits. Strength and sensation are grossly intact. - Labs CBC & Chem 7: 03/22/18 06:24 03/21/18 08:55 Labs: Abnormal Lab Results - Last 24 Hours (Table) 03/21/18 03/21/18 03/21/18 Range/Units 08:55 11:10 16:35 RBC (4.30-5.90) m/uL Hgb (13.0-17.5) gm/dL Hct (39.0-53.0) % Plt Count (150-450) k/uL PT 13.0 H (9.0-12.0) sec INR 1.3 H (<1.2) POC Glucose (mg/dL) 141 H 192 H (75-99) mg/dL 03/21/18 03/22/18 03/22/18 Range/Units 21:10 06:15 06:24 RBC 3.01 L (4.30-5.90) m/uL Hgb 9.1 L (13.0-17.5) gm/dL Hct 28.6 L (39.0-53.0) % Plt Count 118 L (150-450) k/uL PT (9.0-12.0) sec INR (<1.2) POC Glucose (mg/dL) 185 H 192 H (75-99) mg/dL Microbiology - Last 24 Hours (Table) 03/19/18 23:10 Urine Culture - Final Urine,Voided Assessment and Plan (1) GI bleed Narrative/Plan: A 87-year-old male admitted with anemia component of acute blood loss and melena status post EGD with superficial erosions in the cardia felt to be the source of bleeding since resolved. Current Visit: Yes Status: Acute Code(s): K92.2 - GASTROINTESTINAL HEMORRHAGE, UNSPECIFIED SNOMED Code(s): 17654864 Plan: 1. Recommend Protonix 20 mg daily. Follow up in GI office 2-3 weeks after discharge. Assessment plan a care discussed with Dr. Roman
[2018-03-22] MEDS ORDERED: NON-FORMULARY DRUG (Magnesium Oxide 250 MG) PO SCH (09:00)
== END 2018-03-22 13:08 | disposition home health service (06) | DRG 378 ==
LOC: EC 11:59 → 3SCARD 17:35
PROVIDERS: ADMIT Internal Medicine; ATTEND Internal Medicine
PROC: 0DB68ZX Excision of Stomach, Via Natural or Artificial Opening Endoscopic, Diagnostic (ICD-10-PCS; principal; 2018-03-21 07:55)
DX: K29.61 Other gastritis with bleeding (principal); E87.2 Acidosis; I48.1 Persistent atrial fibrillation; D62 Acute posthemorrhagic anemia; E11.42 Type 2 diabetes mellitus with diabetic polyneuropathy; I50.9 Heart failure, unspecified; I65.22 Occlusion and stenosis of left carotid artery; I35.0 Nonrheumatic aortic (valve) stenosis; D50.0 Iron deficiency anemia secondary to blood loss (chronic); K21.9 Gastro-esophageal reflux disease without esophagitis; E78.5 Hyperlipidemia, unspecified; R77.8 Other specified abnormalities of plasma proteins; I67.9 Cerebrovascular disease, unspecified; R32 Unspecified urinary incontinence; I87.2 Venous insufficiency (chronic) (peripheral); Z79.82 Long term (current) use of aspirin; Z79.4 Long term (current) use of insulin; Z79.01 Long term (current) use of anticoagulants; Z79.899 Other long term (current) drug therapy; Z87.19 Personal history of other diseases of the digestive system; Z87.891 Personal history of nicotine dependence; Z80.1 Family history of malignant neoplasm of trachea, bronchus and lung; Z80.0 Family history of malignant neoplasm of digestive organs; Z82.3 Family history of stroke
CPT/HCPCS: 43239; 80048; 80053; 80162; 81003; 82150; 82550; 82553; 83605; 83690; 84132; 84484; 85025; 85027; 85610; 85730; 86850; 86900; 86901; 87086; 88305; 96361; 96374; 99285

== ENCOUNTER 2018-03-31 18:23 | Emergency (ER) | payer MEDICARE, BC ==
[2018-03-31 18:35] VITALS: TEMP 97.6
[2018-03-31 18:39] LABS: Glucose,Whole Blood 354 mg/dL (75-99)
[2018-03-31] MEDS ORDERED: SODIUM CHLORIDE 0.9% 1,000 ML IV ONE (18:54)
[2018-03-31] MEDS ORDERED: INSULIN ASPART 100 UNIT/ML 1 ML 10 ML VIAL SQ ONE ×2 (18:54→21:16)
--- NOTE | 2018-03-31 19:01 | ED ---
General Adult HPI - General Chief complaint: Recheck/Abnormal Lab/Rx Stated complaint: HYPERGLYCEMIA Time Seen by Provider: 03/31/18 18:38 Source: patient, family Mode of arrival: ambulatory Limitations: no limitations - History of Present Illness Initial comments: 87-year-old male patient presents to the emergency department today for evaluation of elevated blood sugar. Family brought patient in after his sugar was elevated at home and he was unable to identify exactly how much insulin to give himself. Family states he is usually very good and quick at determining how much insulin to take. They are concerned that he is responding slower than usual. Patient states that he is feeling well. States that he was using a new meter which confused him. Patient denies any recent rash, fever, chills, shortness breath, chest pain, abdominal pain, nausea, vomiting, diarrhea, constipation, back pain, numbness, tingling, dizziness, weakness, hematuria, dysuria, urinary urgency, urinary frequency, headache, visual changes, or any other complaints. - Related Data Home Medications Medication Instructions Recorded Confirmed Digoxin [Lanoxin] 250 mcg PO DAILY 03/18/18 03/31/18 Ferrous Sulfate [Feosol] 325 mg PO DAILY 03/18/18 03/31/18 Insulin NPH Hum/Reg Insulin Hm 15 unit SQ BID 03/18/18 03/31/18 [NovoLIN 70-30 100 UNIT/ML VIAL] Latanoprost/Pf [Latanoprost 0.005% 1 drop LEFT EYE HS 03/18/18 03/31/18 Eye Drop] Pantoprazole Sodium 20 mg PO DAILY 03/18/18 03/31/18 Simvastatin [Zocor] 20 mg PO HS 03/18/18 03/31/18 Warfarin [Coumadin] 2.5 mg PO HS 03/18/18 03/31/18 Aspirin 81 mg PO DAILY 03/31/18 03/31/18 Insulin Aspart [NovoLOG See Protocol SQ ACHS 03/31/18 03/31/18 (formulary)] Nitroglycerin Sl Tabs [Nitrostat] 0.4 mg SUBLINGUAL Q5M PRN 03/31/18 03/31/18 Previous Rx's Medication Instructions Recorded Magnesium Oxide [Mag-Ox] 400 mg PO DAILY tab 03/22/18 Allergies Allergy/AdvReac Type Severity Reaction Status Date / Time No Known Allergies Allergy Verified 03/31/18 18:44 Review of Systems ROS Statement: Those systems with pertinent positive or pertinent negative responses have been documented in the HPI. ROS Other: All systems not noted in ROS Statement are negative. Past Medical History Past Medical History: Atrial Fibrillation, Diabetes Mellitus, Hyperlipidemia Additional Past Medical History / Comment(s): Venous insufficiency History of Any Multi-Drug Resistant Organisms: None Reported Additional Past Surgical History / Comment(s): hemorrhoidectomy, adenoidectomy Past Anesthesia/Blood Transfusion Reactions: No Reported Reaction Past Psychological History: No Psychological Hx Reported Smoking Status: Former smoker - Past Family History Father Family Medical History: Cancer Additional Family Medical History / Comment(s): lung cancer Mother Family Medical History: Cancer, CVA/TIA Additional Family Medical History / Comment(s): pancreatic cancer General Exam Limitations: no limitations General appearance: alert, in no apparent distress, other (Social well-developed , well-nourished elderly male patient in no acute distress. Vital signs upon presentation are temperature 97.6F, pulse 77, respirations 22, blood pressure 140/54, pulse ox 99% on room air) Eye exam: Present: normal appearance, PERRL, EOMI. Absent: scleral icterus, conjunctival injection, periorbital swelling ENT exam: Present: normal exam, normal oropharynx, mucous membranes moist Respiratory exam: Present: normal lung sounds bilaterally. Absent: respiratory distress, wheezes, rales, rhonchi, stridor Cardiovascular Exam: Present: regular rate, normal rhythm, normal heart sounds. Absent: systolic murmur, diastolic murmur, rubs, gallop, clicks GI/Abdominal exam: Present: soft, normal bowel sounds. Absent: distended, tenderness, guarding, rebound, rigid Neurological exam: Present: alert, oriented X3, CN II-XII intact, other ( Strength in all 4 extremities is 5/5.) Psychiatric exam: Present: normal affect, normal mood Skin exam: Present: warm, dry, intact, normal color. Absent: rash Course Vital Signs 03/31/18 03/31/18 18:32 22:00 Temperature 97.6 F Pulse Rate 77 80 Respiratory 22 14 Rate Blood Pressure 140/54 135/80 O2 Sat by Pulse 99 Oximetry Medical Decision Making - Medical Decision Making 87-year-old male patient presented to the emergency department today for evaluation of hyperglycemia. Physical examination is unremarkable. Patient is neurologically intact with no focal deficits. Patient is alert and oriented. Labs reviewed and did reveal elevated blood sugar. We did dose with NovoLog per patient's usual scale. Blood sugar did come down. He was instructed to keep a close watch on the blood sugar and to keep a log for his primary care physician. Is instructed to call his physician on Tuesday for appointment. Return parameters discussed in detail. Both patient and family verbalized understanding and agree with this plan. - Lab Data Result diagrams: 03/31/18 19:37 03/31/18 19:37 Lab Results 03/31/18 03/31/18 03/31/18 Range/Units 18:36 19:37 19:37 WBC 4.0 (3.8-10.6) k/uL RBC 3.85 L (4.30-5.90) m/uL Hgb 11.3 L (13.0-17.5) gm/dL Hct 36.2 L (39.0-53.0) % MCV 93.9 (80.0-100.0) fL MCH 29.3 (25.0-35.0) pg MCHC 31.2 (31.0-37.0) g/dL RDW 14.9 (11.5-15.5) % Plt Count 196 D (150-450) k/uL Neutrophils % 68 % Lymphocytes % 17 % Monocytes % 11 % Eosinophils % 2 % Basophils % 1 % Neutrophils # 2.7 (1.3-7.7) k/uL Lymphocytes # 0.7 L (1.0-4.8) k/uL Monocytes # 0.4 (0-1.0) k/uL Eosinophils # 0.1 (0-0.7) k/uL Basophils # 0.0 (0-0.2) k/uL Hypochromasia Slight Sodium 137 (137-145) mmol/L Potassium 4.9 (3.5-5.1) mmol/L Chloride 103 (98-107) mmol/L Carbon Dioxide 25 (22-30) mmol/L Anion Gap 9 mmol/L BUN 21 H (9-20) mg/dL Creatinine 0.84 (0.66-1.25) mg/dL Est GFR (CKD-EPI)AfAm 90 (>60 ml/min/1.73 sqM) Est GFR (CKD-EPI)NonAf 78 (>60 ml/min/1.73 sqM) Glucose 343 H (74-99) mg/dL POC Glucose (mg/dL) 354 H (75-99) mg/dL POC Glu Senior Physician ID Samir Davidson Calcium 9.5 (8.4-10.2) mg/dL Total Bilirubin 1.7 H (0.2-1.3) mg/dL AST 27 (17-59) U/L ALT 34 (21-72) U/L Alkaline Phosphatase 120 (38-126) U/L Total Protein 6.9 (6.3-8.2) g/dL Albumin 4.1 (3.5-5.0) g/dL Urine Color Urine Appearance (Clear) Urine pH (5.0-8.0) Ur Specific [place] (1.001-1.035) Urine Protein (Negative) Urine Glucose (UA) (Negative) Urine Ketones (Negative) Urine Blood (Negative) Urine Nitrite (Negative) Urine Bilirubin (Negative) Urine Urobilinogen (<2.0) mg/dL Ur Leukocyte Esterase (Negative) 03/31/18 03/31/18 Range/Units 20:10 21:13 WBC (3.8-10.6) k/uL RBC (4.30-5.90) m/uL Hgb (13.0-17.5) gm/dL Hct (39.0-53.0) % MCV (80.0-100.0) fL MCH (25.0-35.0) pg MCHC (31.0-37.0) g/dL RDW (11.5-15.5) % Plt Count (150-450) k/uL Neutrophils % % Lymphocytes % % Monocytes % % Eosinophils % % Basophils % % Neutrophils # (1.3-7.7) k/uL Lymphocytes # (1.0-4.8) k/uL Monocytes # (0-1.0) k/uL Eosinophils # (0-0.7) k/uL Basophils # (0-0.2) k/uL Hypochromasia Sodium (137-145) mmol/L Potassium (3.5-5.1) mmol/L Chloride (98-107) mmol/L Carbon Dioxide (22-30) mmol/L Anion Gap mmol/L BUN (9-20) mg/dL Creatinine (0.66-1.25) mg/dL Est GFR (CKD-EPI)AfAm (>60 ml/min/1.73 sqM) Est GFR (CKD-EPI)NonAf (>60 ml/min/1.73 sqM) Glucose (74-99) mg/dL POC Glucose (mg/dL) 260 H (75-99) mg/dL POC Glu Senior Physician ID Sadie Oreilly Calcium (8.4-10.2) mg/dL Total Bilirubin (0.2-1.3) mg/dL AST (17-59) U/L ALT (21-72) U/L Alkaline Phosphatase (38-126) U/L Total Protein (6.3-8.2) g/dL Albumin (3.5-5.0) g/dL Urine Color Yellow Urine Appearance Clear (Clear) Urine pH 6.5 (5.0-8.0) Ur Specific [place] 1.018 (1.001-1.035) Urine Protein Negative (Negative) Urine Glucose (UA) 4+ H (Negative) Urine Ketones 1+ H (Negative) Urine Blood Negative (Negative) Urine Nitrite Negative (Negative) Urine Bilirubin Negative (Negative) Urine Urobilinogen <2.0 (<2.0) mg/dL Ur Leukocyte Esterase Negative (Negative) Disposition Clinical Impression: Hyperglycemia Disposition: HOME SELF-CARE Condition: Good Instructions (If sedation given, give patient instructions): Diabetic Hyperglycemia (ED) Additional Instructions: Increase fluids. Monitor blood sugars closely. Keep a log for your physician. Follow-up with your primary care physician for recheck in 1-2 days. Return to the emergency department immediately for any new, worsening, or concerning symptoms. Is patient prescribed a controlled substance at d/c from ED?: No Referrals: Guilherme Santana MD [Primary Care Provider] - 1-2 days Time of Disposition: 21:44
[2018-03-31 19:51] LABS: Basophils % (A) 1 %; Eosinophils # (A) 0.1 k/uL (0-0.7); Eosinophils % (A) 2 %; HCT 36.2 % (39.0-53.0); HGB 11.3 gm/dL (13.0-17.5); Hypochromasia Slight; Lymphocytes # (A) 0.7 k/uL (1.0-4.8); Lymphocytes % (A) 17 %; MCH 29.3 pg (25.0-35.0); MCHC 31.2 g/dL (31.0-37.0); MCV 93.9 fL (80.0-100.0); Mean Platelet Volume 7.1; Monocytes # (A) 0.4 k/uL (0-1.0); Monocytes % (A) 11 %; Neutrophils # (A) 2.7 k/uL (1.3-7.7); Neutrophils % (A) 68 %; RBC 3.85 m/uL (4.30-5.90); RDW 14.9 % (11.5-15.5)
[2018-03-31 19:56] LABS: Albumin 4.1 g/dL (3.5-5.0); Calcium 9.5 mg/dL (8.4-10.2); Potassium 4.9 mmol/L (3.5-5.1); Total Bilirubin 1.7 mg/dL (0.2-1.3); Total Protein 6.9 g/dL (6.3-8.2)
[2018-03-31 19:57] LABS: Platelet Count 196 k/uL (150-450)
[2018-03-31 20:29] LABS: Appearance,Urine Clear (Clear); Bilirubin,Urine Negative (Negative); Blood,Urine Negative (Negative); Color,Urine Yellow; Glucose,Urine (UA) 4+ (Negative); Ketones,Urine 1+ (Negative); Leukocyte Esterase,Urine Negative (Negative); Nitrite,Urine Negative (Negative); PH, Urine 6.5 (5.0-8.0); Protein,Urine Negative (Negative); Specific Gravity,Urine 1.018 (1.001-1.035); Urobilinogen,Urine <2.0 mg/dL (<2.0)
[2018-03-31 21:16] LABS: Glucose,Whole Blood 260 mg/dL (75-99)
[2018-03-31 22:02] VITALS: BP 135/80; PULSE 80; RESP 14
== END 2018-03-31 22:00 | disposition home or self-care (01) ==
LOC: EC 18:23
DX: E11.65 Type 2 diabetes mellitus with hyperglycemia (principal); I48.91 Unspecified atrial fibrillation; E78.5 Hyperlipidemia, unspecified; Z87.891 Personal history of nicotine dependence; Z79.01 Long term (current) use of anticoagulants; Z79.4 Long term (current) use of insulin; Z79.82 Long term (current) use of aspirin; Z79.899 Other long term (current) drug therapy; Z86.79 Personal history of other diseases of the circulatory system
CPT/HCPCS: 36415; 80053; 81003; 85025; 96360; 96361; 99284

== ENCOUNTER → 2018-04-26 | Outpatient (CLI) | payer MEDICARE, BC ==
[2018-04-26 11:23] LABS: Hypochromasia Slight; MCH 29.3 pg (25.0-35.0); MCHC 30.7 g/dL (31.0-37.0); MCV 95.4 fL (80.0-100.0); Mean Platelet Volume 7.3; Platelet Count 190 k/uL (150-450); RBC 3.26 m/uL (4.30-5.90); RDW 14.8 % (11.5-15.5); WBC 5.3 k/uL (3.8-10.6)
[2018-04-26 11:28] LABS: INR 1.7 (<1.2); Prothrombin Time 17.3 sec (9.0-12.0)
[2018-04-26 11:41] LABS: HGB 9.5 gm/dL (13.0-17.5)
== END | disposition home or self-care (01) ==
LOC: LABWHC1 09:43
PROVIDERS: ATTEND Internal Medicine
DX: I48.2 Chronic atrial fibrillation (principal); D50.0 Iron deficiency anemia secondary to blood loss (chronic); Z51.81 Encounter for therapeutic drug level monitoring
CPT/HCPCS: 36415; 85027; 85610